=== PATIENT | male | born 1970 | race Two or more races ===

== ENCOUNTER 2020-01-14 13:16 | Emergency (ER) | payer OTHER ==
[2020-01-14 13:46] VITALS: BP 119/74; PULSE 102; TEMP 98.2; BMI 20.5
--- NOTE | 2020-01-14 14:25 | PDOC ---
History of Present Illness - General Chief Complaint: Rash Stated Complaint: BLISTERS Time Seen by Provider: 01/14/20 13:49 History Source: Patient Exam Limitations: No Limitations - History of Present Illness Initial Comments: 01/14/20 14:29 49 year male with no significant medical or surgical history presents with rash to right lower leg x 3 days. States started with blistering rash on right buttocks now states it is radiating down right thigh and in right groin. States since rash started, having lower back pain. Timing/Duration: reports: other (3 days) Severity: Yes: mild Location: reports: torso Modifying Factors: improves with: other (antibiotics cream) Associated Symptoms: reports: blisters, rash Past History - Travel Traveled outside of the country in the last 30 days: No Close contact w/someone who was outside of country & ill: No - Past Medical History Allergies/Adverse Reactions: Allergies Allergy/AdvReac Type Severity Reaction Status Date / Time No Known Allergies Allergy Verified 02/18/15 13:30 Home Medications: Ambulatory Orders Acetaminophen [Tylenol .Extra-Strength -] 1,000 mg PO Q8H #21 tablet 01/14/20 Tramadol HCl 50 mg PO TID PRN #9 tablet MDD 3 01/14/20 Valacyclovir HCl [Valtrex -] 1,000 mg PO TID #21 tablet 01/14/20 Anemia: No Asthma: No Cancer: No Cardiac Disorders: No CVA: No COPD: No CHF: No Dementia: No Diabetes: No GI Disorders: Yes (gerd) Disorders: No HTN: No Hypercholesterolemia: No Kidney Stones: No Liver Disease: No Seizures: No Thyroid Disease: No - Surgical History Abdominal Surgery: No Appendectomy: No Cardiac Surgery: No Cholecystectomy: No Lung Surgery: No Neurologic Surgery: No Orthopedic Surgery: No - Reproductive History Testicular Surgery: No - Psycho Social/Smoking Cessation Hx Smoking History: Never smoked Have you smoked in the past 12 months: Yes Number of Cigarettes Smoked Daily: 20 Information on smoking cessation initiated: No 'Breaking Loose' booklet given: 02/18/15 Hx Alcohol Use: No Drug/Substance Use Hx: No Substance Use Type: Alcohol, Cocaine, Marijuana Hx Substance Use Treatment: No Review of Systems - Review of Systems Able to Perform ROS?: Yes Constitutional: No: Chills, Fever, Loss of Appetite HEENTM: No: Nose Congestion, Throat Pain, Throat Swelling Respiratory: No: Orthopnea, Shortness of Breath, Stridor Cardiac (ROS): No: Chest Pain, Lightheadedness ABD/GI: No: Abdominal Distended, Blood Streaked Bowels, Poor Appetite : No: Burning, Dysuria, Discharge, Incontinence Musculoskeletal: Yes: Back Pain. No: Gout, Muscle Weakness Integumentary: Yes: Rash Neurological: No: Headache, Numbness Endocrine: No: Intolerance to Heat *Physical Exam - Vital Signs Last Vital Signs Temp Pulse Resp BP Pulse Ox 98.2 F 102 H 17 119/74 99 01/14/20 13:40 01/14/20 13:40 01/14/20 13:40 01/14/20 13:40 01/14/20 13:40 - Physical Exam General Appearance: Yes: Nourished, Appropriately Dressed HEENT: positive: TMs Normal, Pharynx Normal Neck: positive: Supple. negative: Lymphadenopathy (R), Lymphadenopathy (L) Respiratory/Chest: positive: Lungs Clear, Normal Breath Sounds Cardiovascular: positive: Regular Rhythm, Regular Rate Extremity: positive: Normal Capillary Refill Integumentary: positive: Other (bistering rash in different stages of healing to right buttock, right thigh, right groin area) Neurologic: positive: Fully Oriented, Alert Medical Decision Making - Medical Decision Making 01/14/20 15:04 49 year male with no significant medical or surgical history presents with rash to right lower leg x 3 days. States started with blistering rash on right buttocks now states it is radiating down right thigh and in right groin. States since rash started, having lower back pain. Rash -Rx valcyclovir acetaminophen and tramadol Discharge - Discharge Information Problems reviewed: Yes Clinical Impression/Diagnosis: Shingles rash Qualifiers: Herpes zoster complications: unspecified herpes zoster complication Qualified Code(s): B02.8 - Zoster with other complications Condition: Good Disposition: HOME - Admission No - Additional Discharge Information Prescriptions: Tramadol HCl 50 mg PO TID PRN #9 tablet MDD 3 PRN Reason: Pain Level 6-10 Acetaminophen [Tylenol .Extra-Strength -] 1,000 mg PO Q8H #21 tablet Valacyclovir HCl [Valtrex -] 1,000 mg PO TID #21 tablet - Follow up/Referral - Patient Discharge Instructions Patient Printed Discharge Instructions: Shingles Additional Instructions: [facility]sa la medicina hasta termina llama tu medico para seguiamente Brigida la medicina para dolor Print Language: ITALIAN - Post Discharge Activity Work/Back to School Note: Back to Work
== END 2020-01-14 14:45 | disposition home or self-care (01) ==
LOC: JERFT 13:16
DX: B02.8 Zoster with other complications (principal); M54.5 Low back pain
CPT/HCPCS: 99282-25

== ENCOUNTER 2024-09-20 05:15 | Day surgery (SDC) | payer OTHER ==
[2024-09-18 15:25] VITALS: BMI 19.7
[2024-09-20] MEDS: LIDOCAINE HCL 1% PRESERVATIVE FREE - 30ML VIAL IJ ONE
[2024-09-20] MEDS: IOHEXOL 180 MG/1 ML ML IJ ONE
[2024-09-20] MEDS ORDERED: ACETAMINOPHEN 500 MG TABLET (FP) PO PRN (09:04)
[2024-09-20 12:02] VITALS: RESP 18
[2024-09-20] MEDS: BUPIVACAINE HCL/PF 0.5% (5MG/ML) 10 ML VIAL IJ ONE ×3 (13:02)
[2024-09-20 14:43] VITALS: BP 122/79; PULSE 61; TEMP 97.7
== END 2024-09-20 13:54 | disposition home or self-care (01) ==
LOC: JASU-SURG 05:15
PROVIDERS: ATTEND Pain Medicine Pain Medicine
PROC: 3E0T33Z Introduction of Anti-inflammatory into Peripheral Nerves and Plexi, Percutaneous Approach (ICD-10-PCS; 2024-09-20)
PROC: BR14YZZ Fluoroscopy of Cervical Facet Joint(s) using Other Contrast (ICD-10-PCS; 2024-09-20)
PROC: 3E0T3BZ Introduction of Anesthetic Agent into Peripheral Nerves and Plexi, Percutaneous Approach (ICD-10-PCS; principal; 2024-09-20 13:15)
DX: M47.812 Spondylosis without myelopathy or radiculopathy, cervical region (principal)
CPT/HCPCS: 76000-TC-FY